=== PATIENT | male | born 2000 | race American Indian/Alaskan Native ===

== ENCOUNTER 2022-07-03 16:47 | Emergency (ER) | payer OTHER, MEDICAID ==
[2022-07-03 18:32] VITALS: BP 105/62
[2022-07-03] MEDS ORDERED: HYDROcodone/ACETAMINOPHEN 5-325 MG TAB PO ONE (21:25)
[2022-07-03] MEDS ORDERED: IBUPROFEN 800 MG TAB PO ONE (21:25)
[2022-07-03] MEDS ORDERED: CYCLOBENZAPRINE 10 MG TAB PO ONE (21:25)
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
== END 2022-07-03 22:30 | disposition home or self-care (01) ==
LOC: ED 16:47
DX: M62.830 Muscle spasm of back (principal); V89.2XXA Person injured in unspecified motor-vehicle accident, traffic, initial encounter; Y93.89 Activity, other specified; Y92.89 Other specified places as the place of occurrence of the external cause; Y99.8 Other external cause status; Z85.830 Personal history of malignant neoplasm of bone
CPT/HCPCS: 71045; 99283